=== PATIENT | female | born 2000 | race Caucasian/White ===

== ENCOUNTER 2019-06-30 13:46 | Emergency (ER) | payer SELFPAY ==
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
== END 2019-06-30 16:00 | disposition home or self-care (01) ==
LOC: MW.ED 13:46
DX: Z04.71 Encounter for examination and observation following alleged adult physical abuse (principal)
CPT/HCPCS: 99283; 99284